=== PATIENT | female | born 1965 | race African-American/Black ===

== ENCOUNTER → 2018-06-24 | Outpatient (CLI) | payer OTHER ==
--- NOTE | 2018-06-25 10:48 | KCIC ---
Bilateral digital screening mammograms: Reason for examination: Routine screening. Comparison is made to previous study dated 11/26/2012. Interpretation was made with the benefit of CAD. The skin and nipples show no abnormalities. No abnormal axillary lymph nodes are seen. The breast parenchyma shows scattered fibroglandular density. (Breast density: Category B.) There is a small nodule with calcifications at the 9:30 B position of the right breast consistent with a degenerating fibroadenoma. There are also small circumscribed nodules at approximately the 9:30 C position of the right breast and at the 3:00 A position of the left breast which have circumscribed margins and benign appearances. A few scattered benign calcifications are present. Impression: Benign-appearing nodular densities bilaterally which could represent fibroadenoma and intramammary lymph nodes. Recommend further evaluation with ultrasound. BI-RADS category 0: Incomplete. Needs additional imaging evaluation. "Our facility is accredited by the [employer] Mammography Program." This patient's information has been entered into a reminder system for the patient to be notified with the results of her examination and a target date for the next mammogram. Electronically signed by: Veuns Molina MD (06/25/2018 10:44 AM) [facility]
== END | disposition home or self-care (01) ==
LOC: KCIC MAMMO 13:53
PROVIDERS: ATTEND Internal Medicine
DX: Z12.31 Encounter for screening mammogram for malignant neoplasm of breast (principal)
CPT/HCPCS: 77067

== ENCOUNTER → 2018-07-05 | Outpatient (CLI) | payer OTHER ==
--- NOTE | 2018-07-05 11:08 | KCIC ---
EXAM: Bilateral breast sonogram. HISTORY: 52-year-old female presents for sonographic evaluation of areas of nodularity within both breasts demonstrated on a mammogram dated 06/24/2018. TECHNIQUE: Sonographic imaging of both breasts including all 4 quadrants of the retroareolar regions was performed. COMPARISON: 11/26/2012 and 06/24/2018. FINDINGS: Sonographic imaging of the right breast demonstrates an ill-defined hypoechoic mass with blood flow and slight posterior shadowing at the 9:30 position 5 cm from the nipple measuring 6.2 mm in maximum dimension. There is a suspected complex cyst at the 9:30 position of the right breast 7 cm for the nipple measuring 3.6 mm. There is a suspected benign complex cyst or fibrocystic lesion measuring 5.5 mm at the 9:30 position 8 cm from the nipple. There are dilated ducts within the subareolar aspect of the right breast. There are benign-appearing axillary lymph nodes. Sonographic imaging of the left breast demonstrates a 3.4 mm suspected benign fibrocystic lesion at the 2:00 position 4 cm from the nipple. There is a lymph node with prominent cortex within the left axilla measuring 1.0 cm. IMPRESSION: 1. 6.2 mm hypoechoic lesion with suspicious sonographic features within the 9:30 position of the right breast 8 cm from the nipple. Sonographic guided biopsy is recommended 2. Suspected subcentimeter benign fibrocystic lesions or fibroadenomas within both breasts, described in detail above. There is also a lymph node with slightly prominent cortex within the left axilla. Short-term follow-up with a bilateral breast sonogram in 6 months can be performed to confirm stability of these lesions. 3. BI-RADS Category 4: Suspicious abnormality. Sonographic guided biopsy of the lesion at the 9:30 o'clock position of the right breast 8 cm from the nipple is recommended. These findings and requisitions were discussed with the patient and will be communicated to the referring physician office. Electronically signed by: Shelly Vela MD (07/05/2018 11:05 AM) [facility]
== END | disposition home or self-care (01) ==
LOC: KCIC US 10:09
PROVIDERS: ATTEND Internal Medicine
DX: N63.11 Unspecified lump in the right breast, upper outer quadrant (principal)
CPT/HCPCS: 76641

== ENCOUNTER → 2018-07-30 | Outpatient (CLI) | payer OTHER ==
--- NOTE | 2018-08-03 23:07 | PATHOLOGY ---
[facility] Accession Number: [id number] . 01 Material submitted: . RIGHT BREAST TISSUE . 01 Clinical history: . Right breast mass . 02 Diagnosis: "Right breast tissue 9:30 position, 5 cm from nipple", image-guided needle biopsy: - Intraductal papilloma, involving multiple cores, with coarse microcalcifications present; no cytologic atypia or malignancy seen. (See comment.) QMS/08/02/2018 . 02 Comment: Properly controlled immunohistochemical stains are performed. . Block A1 . p63: Intact myoepithelial cells Smooth muscle myosin: Intact myoepithelial cells . . Clinical and radiographic correlation is required. Of note, this is a small portion of a larger lesion and may not be entirely senior human resources representative. The case is co-reviewed with Dr. Deeapk Beckman. . (CLW:[facility]; 08/02/2018) . 02 Electronically signed: . Leah Brooks MD, Pathologist NPI- [id number] . 01 Gross description: . Received in formalin labeled "Naomie Duckworth, right breast," and additionally labeled on the requisition as "9:30 position, 5 cm from nipple," are multiple needle cores of yellow-benaivdez fibrofatty tissue measuring 1.7 x 2.1 x 0.4 cm in aggregate dimensions. The tissue submitted in its entirety in cassettes A1 through A3. The cold ischemic time is 3 minutes. The total formalin fixation time is 9 hours and 35 minutes. ([facility]; 07/30/2018) TOB/TOB . 02 Pathologist provided ICD-10: D24.1 . 02 CPT . 945654, C91033, O31304 Specimen Comment: A courtesy copy of this report has been sent to Specimen Comment: [phone], , . Specimen Comment: Report sent to ,DR CRAMER / DR COATES Specimen Comment: A duplicate report has been generated due to demographic updates. Performed at: 01 [facility] [address], [place] [id number] MD Kevin Rae MD Phone: [phone] Performed at: 02 [facility] [address], [place] [id number] MD Spike Beckman MD Phone: [phone]
--- NOTE | 2018-08-04 14:07 | RAD ---
Ultrasound-guided right breast biopsy, 07/30/2018: History: Suspicious breast nodule A previous ultrasound exam demonstrated several right breast nodules with a nodule at the 9:30 location, 5 cm from the nipple, considered to be suspicious. Under local anesthesia, aseptic conditions and sonographic guidance the [employer]uros ATEC biopsy and was passed along the posterior margin of this nodule via a lateral approach. Multiple 12-gauge vacuum-assisted core samples were obtained and sent to pathology for evaluation. A biopsy marker was then deposited at the biopsy site. Two-view postprocedural mammograms were then obtained to document position of the biopsy marker. It lies directly adjacent to a nodule containing coarse calcifications. The patient tolerated the procedure well and left the department in good condition. Note: The subsequent pathology report indicated the presence of an intraductal papilloma with coarse microcalcifications and no evidence of malignancy. The sonographic finding appears to have corresponded to a partially calcified nodule evident mammographically. Additionally, it should be noted that the breast ultrasound study of 07/05/2018 described several additional bilateral breast nodules, for which 6 month sonographic surveillance was recommended.
== END | disposition home or self-care (01) ==
LOC: US 07-26 13:13
PROVIDERS: ATTEND Internal Medicine
DX: D24.1 Benign neoplasm of right breast (principal)
CPT/HCPCS: 19083; 77065; 88305; 88341; 88342; C1713; 19081; 76942

== ENCOUNTER → 2020-08-16 | Outpatient (CLI) | payer OTHER ==
--- NOTE | 2020-08-20 17:24 | RAD ---
DATE: 08/16/2020 2:01 PM EXAM: MAMMO SARAH SCREENING BILATERAL HISTORY: Screening COMPARISON: 06/24/2018 Bilateral CC and MLO views of the breasts were performed. Bilateral breast tomosynthesis was performed in CC and MLO projections. This study was interpreted with the benefit of Computerized Aided Detection (CAD). FINDINGS: Breast Density: SCATTERED The breast parenchyma shows scattered fibroglandular densities. Breast parenchyma level B No suspicious masses, microcalcifications or architectural distortion is present to suggest malignancy in either breast. The visualized axillae are unremarkable. IMPRESSION: No mammographic evidence of malignancy. BI-RADS CATEGORY: 1 NEGATIVE RECOMMENDED FOLLOW-UP: 12M 12 MONTH FOLLOW-UP Annual screening mammography is recommended, unless clinically indicated sooner based on symptoms or change in physical exam. PQRS compliance statement: Patient information was entered into a reminder system with a target due date for the next mammogram. Mammography is a sensitive method for finding small breast cancers, but it does not detect them all and is not a substitute for careful clinical examination. A negative mammogram does not negate a clinically suspicious finding and should not result in delay in biopsying a clinically suspicious abnormality. "Our facility is accredited by the [employer] Mammography Program."
== END ==
LOC: MAMMO 13:46
PROVIDERS: ATTEND Internal Medicine
DX: Z12.31 Encounter for screening mammogram for malignant neoplasm of breast (principal)
CPT/HCPCS: 77063; 77067

== ENCOUNTER → 2021-08-19 | Outpatient (CLI) | payer OTHER ==
--- NOTE | 2021-08-19 11:16 | KCIC ---
EXAM: DUAL ENERGY X-RAY ABSORPTIOMETRY (DEXA). HISTORY: Postmenopausal screening. FINDINGS: The lowest measured T-score is 1.3 in the left total femur, based on a bone mineral density of 1.103 g/cm^2. Refer to the worksheets for full detail. No comparison examinations are available. IMPRESSION: Normal. Bone mineral density yields a T-score of -1.0 or greater. Fracture risk is low. FRAX was not calculated. METHODOLOGY: Dual energy x-ray absorptiometry was performed to measure bone mineral density. The foll owing analysis is based on the 2019 Official Positions of the International Society for Clinical Dens itometry: Measurements of the hips and the average of L1-L4 are preferred. When the spine and/or hip cannot be feasibly measured or interpreted, or in the setting of hyperparathyroidism, distal radial bone minera l density may be measured. The lumbar spine T-score is based on the average bone mineral density of L1-L4. In the setting of art ifact or anatomic abnormality, some lumbar levels may be excluded, and the remaining levels used for calculation. A single lumbar level is not used for diagnosis, and if only a single level is available for assessment, another anatomic site will be used to assign a diagnosis. The hip T-score is based on the bone mineral density measurement of the femoral neck or total proxima l femur of either side, whichever is lowest. Bilateral mean values are not used for diagnosis. The forearm T-score is derived from 33% of the distal radius of the nondominant forearm. For postmenopausal and perimenopausal women, and men age 50 or older, of all ethnic groups, T-scores are calculated through comparison of the current measurement with the NHANES III database standard fo r females aged 20-29 years. The lowest T-score of the evaluated anatomic sites is used to a ssign a diagnosis based on the World Health Organization densitometric classification. In premenopausal females and males younger than age 50, a Z-score is calculated based on population s pecific reference data for patient sex and self-reported ethnicity. Electronically signed by: Gera Newman MD (08/19/2021 11:14 AM) [id number]
--- NOTE | 2021-08-19 11:22 | KCIC ---
Bilateral digital screening mammograms with 3-D tomosynthesis: Reason for examination: Routine screening. Comparison is made to previous studies dated back to 11/26/2012. Bilateral mammograms in CC and oblique projections were obtained with 2-D imaging and 3-D tomosynthes is imaging on a Siemens Inspiration unit and reviewed on the workstation. Interpretation was made wit h the benefit of CAD. The skin and nipples show no abnormalities. No abnormal axillary lymph nodes are seen. The breast par enchyma shows scattered fatty and fibroglandular density. (Breast density: Category B.) There are pos tbiopsy changes with residual calcifications upper outer quadrant of the right breast which are stabl e. There are no new dominant masses, suspicious calcifications or architectural distortion. Impression: No evidence of malignancy. Recommend routine screening. BI-RAD Category 2: Benign. "Our facility is accredited by the [employer] Mammography Program." This patient's information has been entered into a reminder system for the patient to be notified wit h the results of her examination and a target date for the next mammogram. Electronically signed by: Venus Molina MD (08/19/2021 11:19 AM) [id number]
== END ==
LOC: KCIC MAMMO 09:53
PROVIDERS: ATTEND Internal Medicine
DX: Z12.31 Encounter for screening mammogram for malignant neoplasm of breast (principal); Z78.0 Asymptomatic menopausal state
CPT/HCPCS: 77063; 77067; 77080